=== PATIENT | female | born 1935 | race Caucasian/White ===

== ENCOUNTER 2021-07-15 19:29 | Inpatient (IN) ==
[2021-07-15] MEDS ORDERED: D5% in Water 1,000 ML IVC PRN (22:11)
[2021-07-15] MEDS ORDERED: *HR* Dextrose 50 % in Water (Syg) 50 ML SYRINGE IVP PRN (22:11)
[2021-07-15] MEDS ORDERED: Dextrose 4 GM Chewable Tablets PO PRN ×2 (22:11)
[2021-07-16] MEDS ORDERED: Insulin LISPRO 300 UNITS/3 ML VIAL SUBQ SCH ×2 (13:30→21:00)
[2021-07-16 13:31] LABS: Basophils # 0.1 K/mcL (0.0-0.2); Basophils % 0.6 %; Eosinophils # 0.2 K/mcL (0.0-0.6); Hematocrit 42.2 % (35.3-44.9); Hemoglobin 13.4 g/dL (11.5-15.4); Immature Granulocytes % 0.6 % (0-4); Lymphocytes # 1.5 K/mcL (0.6-4.6); Lymphocytes % 15.9 %; Mean Corpuscular HGB Conc 31.8 g/dL (31.6-35.5); Mean Corpuscular Volume 91.3 fL (83.0-100.0); Mean Platelet Volume 10.5 fL (9.4-12.4); Monocytes # 0.8 K/mcL (0.0-1.3); Monocytes % 8.3 %; Neutrophils # 6.9 K/mcL (1.6-8.9); Platelet Count 270 K/mcL (140-400); Red Blood Count 4.62 M/mcL (3.82-4.97); Red Cell Distribution Width 13.8 % (11.5-14.5); Segmented Neutrophils % 72.6 %; White Blood Count 9.4 K/mcL (4.3-11.1)
[2021-07-16 13:43] LABS: BUN/Creatinine Ratio 38 (6-26); Blood Urea Nitrogen 37 mg/dL (8-23); Calcium 9.9 mg/dL (8.6-10.3); Carbon Dioxide 24 mEq/L (23-29); Chloride 103 mEq/L (98-107); Glucose 137 mg/dL (70-105); Osmolality,Calculated 291 (280-300); Potassium 4.2 mEq/L (3.5-5.1); Sodium 135 mEq/L (136-145); eGFR For African Americans > 60 (> 60); eGFR For Non-African Americans 54 (> 60)
[2021-07-16] MEDS ORDERED: Cyanocobalamin (B-12) 1,000 MCG/ML VIAL IM ONE (15:20)
[2021-07-16] MEDS: Cyanocobalamin (B-12) 1,000 MCG/ML VIAL IM SCH (17:23)
[2021-07-17] MEDS: lisinopriL 20 MG TABLET PO SCH (08:06)
[2021-07-17] MEDS: Aspirin 81 MG TAB.CHEW PO SCH (08:06)
[2021-07-17] MEDS: Multivit/Ca/Min/Fe/FA 1 TAB TABLET PO SCH (08:06)
[2021-07-17] MEDS: amLODIPine 5 MG TABLET PO SCH (08:06)
[2021-07-17] MEDS ORDERED: *HR* Glimepiride 2 MG TABLET PO SCH (09:00)
[2021-07-18] MEDS: lisinopriL 20 MG TABLET PO SCH (09:18)
[2021-07-18] MEDS: Aspirin 81 MG TAB.CHEW PO SCH (09:18)
[2021-07-18] MEDS: amLODIPine 5 MG TABLET PO SCH (09:18)
[2021-07-18] MEDS: Multivit/Ca/Min/Fe/FA 1 TAB TABLET PO SCH (09:18)
[2021-07-19] MEDS: Multivit/Ca/Min/Fe/FA 1 TAB TABLET PO SCH (07:30)
[2021-07-19] MEDS: Aspirin 81 MG TAB.CHEW PO SCH (07:30)
[2021-07-19] MEDS: lisinopriL 20 MG TABLET PO SCH (07:31)
[2021-07-19] MEDS: amLODIPine 5 MG TABLET PO SCH (07:31)
[2021-07-20] MEDS: Multivit/Ca/Min/Fe/FA 1 TAB TABLET PO SCH (09:19)
[2021-07-20] MEDS: amLODIPine 5 MG TABLET PO SCH (09:20)
[2021-07-20] MEDS: lisinopriL 20 MG TABLET PO SCH (09:20)
[2021-07-20] MEDS: Aspirin 81 MG TAB.CHEW PO SCH (09:20)
[2021-07-20] MEDS ORDERED: E-Z-PAQUE (BARIUM SULF) SUSP 1 BOTTLE PO ONE (10:57)
[2021-07-20] MEDS ORDERED: E-Z-HD (BARIUM SULF) SUSPENSION PO ONE (10:57)
[2021-07-21] MEDS: lisinopriL 20 MG TABLET PO SCH (08:15)
[2021-07-21] MEDS: amLODIPine 5 MG TABLET PO SCH (08:15)
[2021-07-21] MEDS: Aspirin 81 MG TAB.CHEW PO SCH (08:15)
[2021-07-21] MEDS: Multivit/Ca/Min/Fe/FA 1 TAB TABLET PO SCH (08:15)
[2021-07-21] MEDS ORDERED: Sennosides 8.6 MG TABLET PO PRN (11:18)
[2021-07-21] MEDS: Docusate Oral Soln 100 MG/10 ML UDC PO SCH (12:12)
[2021-07-22 07:54] LABS: Hematocrit 40.2 % (35.3-44.9); Mean Corpuscular HGB Conc 32.3 g/dL (31.6-35.5); Mean Corpuscular Hemoglobin 29.3 pg (28.0-33.3); Mean Corpuscular Volume 90.7 fL (83.0-100.0); Mean Platelet Volume 10.8 fL (9.4-12.4); Platelet Count 283 K/mcL (140-400); Red Blood Count 4.43 M/mcL (3.82-4.97); Red Cell Distribution Width 13.2 % (11.5-14.5); White Blood Count 9.1 K/mcL (4.3-11.1)
[2021-07-22 08:30] LABS: BUN/Creatinine Ratio 49 (6-26); Blood Urea Nitrogen 45 mg/dL (8-23); Calcium 10.1 mg/dL (8.6-10.3); Carbon Dioxide 24 mEq/L (23-29); Chloride 105 mEq/L (98-107); Glucose 155 mg/dL (70-105); Magnesium 2.4 mg/dL (1.6-2.6); Osmolality,Calculated 299 (280-300); Potassium 4.8 mEq/L (3.5-5.1); Sodium 137 mEq/L (136-145); eGFR For African Americans > 60 (> 60); eGFR For Non-African Americans 58 (> 60)
[2021-07-22] MEDS: lisinopriL 20 MG TABLET PO SCH (09:28)
[2021-07-22] MEDS: Aspirin 81 MG TAB.CHEW PO SCH (09:28)
[2021-07-22] MEDS: Docusate Oral Soln 100 MG/10 ML UDC PO SCH (09:28)
[2021-07-22] MEDS: Multivit/Ca/Min/Fe/FA 1 TAB TABLET PO SCH (09:28)
[2021-07-22] MEDS: amLODIPine 5 MG TABLET PO SCH (09:29)
[2021-07-22] MEDS: Sennosides 8.6 MG TABLET PO SCH (11:58)
[2021-07-23] MEDS: lisinopriL 20 MG TABLET PO SCH (08:04)
[2021-07-23] MEDS: amLODIPine 5 MG TABLET PO SCH (08:04)
[2021-07-23] MEDS: Aspirin 81 MG TAB.CHEW PO SCH (08:04)
[2021-07-23] MEDS: Docusate Oral Soln 100 MG/10 ML UDC PO SCH (08:04)
[2021-07-23] MEDS: Multivit/Ca/Min/Fe/FA 1 TAB TABLET PO SCH (08:04)
[2021-07-23] MEDS: Sennosides 8.6 MG TABLET PO SCH (08:04)
[2021-07-23] MEDS: Cyanocobalamin (B-12) 1,000 MCG/ML VIAL IM SCH (09:25)
[2021-07-23] MEDS: Sennosides/Docusate Sodium TABLET PO SCH (20:21)
[2021-07-24] MEDS: Sennosides/Docusate Sodium TABLET PO SCH ×2 (07:49→20:20)
[2021-07-24] MEDS: amLODIPine 5 MG TABLET PO SCH (07:49)
[2021-07-24] MEDS: lisinopriL 20 MG TABLET PO SCH (07:49)
[2021-07-24] MEDS: Multivit/Ca/Min/Fe/FA 1 TAB TABLET PO SCH (07:49)
[2021-07-24] MEDS: Aspirin 81 MG TAB.CHEW PO SCH (07:49)
[2021-07-25] MEDS: lisinopriL 20 MG TABLET PO SCH (09:04)
[2021-07-25] MEDS: Sennosides/Docusate Sodium TABLET PO SCH ×2 (09:04→19:36)
[2021-07-25] MEDS: Multivit/Ca/Min/Fe/FA 1 TAB TABLET PO SCH (09:04)
[2021-07-25] MEDS: Aspirin 81 MG TAB.CHEW PO SCH (09:05)
[2021-07-25] MEDS: amLODIPine 5 MG TABLET PO SCH (09:05)
[2021-07-26] MEDS: lisinopriL 20 MG TABLET PO SCH (08:40)
[2021-07-26] MEDS: Aspirin 81 MG TAB.CHEW PO SCH (08:40)
[2021-07-26] MEDS: Sennosides/Docusate Sodium TABLET PO SCH ×2 (08:40→19:42)
[2021-07-26] MEDS: amLODIPine 5 MG TABLET PO SCH (08:40)
[2021-07-26] MEDS: Multivit/Ca/Min/Fe/FA 1 TAB TABLET PO SCH (08:40)
[2021-07-26] MEDS: Insulin LISPRO 300 UNITS/3 ML VIAL SUBQ SCH (19:34)
[2021-07-27] MEDS: Insulin LISPRO 300 UNITS/3 ML VIAL SUBQ SCH ×4 (07:21→20:24)
[2021-07-27] MEDS: Aspirin 81 MG TAB.CHEW PO SCH (08:16)
[2021-07-27] MEDS: amLODIPine 5 MG TABLET PO SCH (08:16)
[2021-07-27] MEDS: Sennosides/Docusate Sodium TABLET PO SCH ×2 (08:16→19:38)
[2021-07-27] MEDS: Multivit/Ca/Min/Fe/FA 1 TAB TABLET PO SCH (08:16)
[2021-07-27] MEDS: lisinopriL 20 MG TABLET PO SCH (08:17)
[2021-07-28] MEDS: Insulin LISPRO 300 UNITS/3 ML VIAL SUBQ SCH ×4 (08:23→20:00)
[2021-07-28] MEDS: Sennosides/Docusate Sodium TABLET PO SCH ×2 (09:05→20:00)
[2021-07-28] MEDS: Aspirin 81 MG TAB.CHEW PO SCH (09:05)
[2021-07-28] MEDS: amLODIPine 5 MG TABLET PO SCH (09:06)
[2021-07-28] MEDS: Multivit/Ca/Min/Fe/FA 1 TAB TABLET PO SCH (09:06)
[2021-07-28] MEDS: modafiniL 100 MG TABLET PO SCH (09:06)
[2021-07-28] MEDS: lisinopriL 20 MG TABLET PO SCH (09:06)
[2021-07-29] MEDS: Insulin LISPRO 300 UNITS/3 ML VIAL SUBQ SCH ×4 (07:39→21:37)
[2021-07-29] MEDS: Aspirin 81 MG TAB.CHEW PO SCH (08:16)
[2021-07-29] MEDS: modafiniL 100 MG TABLET PO SCH (08:16)
[2021-07-29] MEDS: lisinopriL 20 MG TABLET PO SCH (08:17)
[2021-07-29] MEDS: Sennosides/Docusate Sodium TABLET PO SCH ×2 (08:17→21:37)
[2021-07-29] MEDS: Multivit/Ca/Min/Fe/FA 1 TAB TABLET PO SCH (08:17)
[2021-07-29] MEDS: amLODIPine 5 MG TABLET PO SCH (08:17)
[2021-07-30] MEDS: Insulin LISPRO 300 UNITS/3 ML VIAL SUBQ SCH ×4 (07:39→20:38)
[2021-07-30] MEDS: Multivit/Ca/Min/Fe/FA 1 TAB TABLET PO SCH (07:45)
[2021-07-30] MEDS: modafiniL 100 MG TABLET PO SCH (07:45)
[2021-07-30] MEDS: Aspirin 81 MG TAB.CHEW PO SCH (07:45)
[2021-07-30] MEDS: Sennosides/Docusate Sodium TABLET PO SCH ×2 (07:45→20:36)
[2021-07-30] MEDS: amLODIPine 5 MG TABLET PO SCH (07:45)
[2021-07-30] MEDS: lisinopriL 20 MG TABLET PO SCH (07:45)
[2021-07-30] MEDS: Cyanocobalamin (B-12) 1,000 MCG/ML VIAL IM SCH (07:47)
[2021-07-31] MEDS: Insulin LISPRO 300 UNITS/3 ML VIAL SUBQ SCH ×4 (07:46→20:24)
[2021-07-31] MEDS: Sennosides/Docusate Sodium TABLET PO SCH ×2 (10:04→21:21)
[2021-07-31] MEDS: lisinopriL 20 MG TABLET PO SCH (10:05)
[2021-07-31] MEDS: amLODIPine 5 MG TABLET PO SCH (10:05)
[2021-07-31] MEDS: Multivit/Ca/Min/Fe/FA 1 TAB TABLET PO SCH (10:05)
[2021-07-31] MEDS: modafiniL 100 MG TABLET PO SCH (10:05)
[2021-07-31] MEDS: Aspirin 81 MG TAB.CHEW PO SCH (10:05)
[2021-08-01] MEDS: Insulin LISPRO 300 UNITS/3 ML VIAL SUBQ SCH ×4 (07:44→22:12)
[2021-08-01] MEDS: Sennosides/Docusate Sodium TABLET PO SCH ×2 (08:37→22:56)
[2021-08-01] MEDS: Aspirin 81 MG TAB.CHEW PO SCH (08:37)
[2021-08-01] MEDS: amLODIPine 5 MG TABLET PO SCH (08:37)
[2021-08-01] MEDS: Multivit/Ca/Min/Fe/FA 1 TAB TABLET PO SCH (08:37)
[2021-08-01] MEDS: lisinopriL 20 MG TABLET PO SCH (08:37)
[2021-08-01] MEDS: modafiniL 100 MG TABLET PO SCH (08:37)
[2021-08-02] MEDS: Insulin LISPRO 300 UNITS/3 ML VIAL SUBQ SCH ×4 (07:25→21:01)
[2021-08-02] MEDS: modafiniL 100 MG TABLET PO SCH (09:18)
[2021-08-02] MEDS: Sennosides/Docusate Sodium TABLET PO SCH ×2 (09:18→21:00)
[2021-08-02] MEDS: lisinopriL 20 MG TABLET PO SCH (09:18)
[2021-08-02] MEDS: amLODIPine 5 MG TABLET PO SCH (09:18)
[2021-08-02] MEDS: Multivit/Ca/Min/Fe/FA 1 TAB TABLET PO SCH (09:18)
[2021-08-02] MEDS: Aspirin 81 MG TAB.CHEW PO SCH (09:18)
[2021-08-03] MEDS: Insulin LISPRO 300 UNITS/3 ML VIAL SUBQ SCH ×4 (07:16→20:49)
[2021-08-03] MEDS: lisinopriL 20 MG TABLET PO SCH (08:49)
[2021-08-03] MEDS: modafiniL 100 MG TABLET PO SCH (08:50)
[2021-08-03] MEDS: Sennosides/Docusate Sodium TABLET PO SCH ×2 (08:50→21:26)
[2021-08-03] MEDS: Multivit/Ca/Min/Fe/FA 1 TAB TABLET PO SCH (08:50)
[2021-08-03] MEDS: Aspirin 81 MG TAB.CHEW PO SCH (08:50)
[2021-08-03] MEDS: amLODIPine 5 MG TABLET PO SCH (08:50)
[2021-08-04 06:39] LABS: Hematocrit 36.9 % (35.3-44.9); Mean Corpuscular HGB Conc 32.5 g/dL (31.6-35.5); Mean Corpuscular Hemoglobin 28.8 pg (28.0-33.3); Mean Corpuscular Volume 88.7 fL (83.0-100.0); Mean Platelet Volume 11.3 fL (9.4-12.4); Platelet Count 296 K/mcL (140-400); Red Blood Count 4.16 M/mcL (3.82-4.97); Red Cell Distribution Width 13.9 % (11.5-14.5); White Blood Count 11.2 K/mcL (4.3-11.1)
[2021-08-04 07:04] LABS: BUN/Creatinine Ratio 41 (6-26); Blood Urea Nitrogen 34 mg/dL (8-23); Calcium 9.6 mg/dL (8.6-10.3); Carbon Dioxide 22 mEq/L (23-29); Chloride 106 mEq/L (98-107); Glucose 137 mg/dL (70-105); Osmolality,Calculated 294 (280-300); Potassium 4.1 mEq/L (3.5-5.1); Sodium 137 mEq/L (136-145); eGFR For African Americans > 60 (> 60); eGFR For Non-African Americans > 60 (> 60)
[2021-08-04] MEDS: Insulin LISPRO 300 UNITS/3 ML VIAL SUBQ SCH ×4 (07:26→20:24)
[2021-08-04] MEDS: Aspirin 81 MG TAB.CHEW PO SCH (08:13)
[2021-08-04] MEDS: Multivit/Ca/Min/Fe/FA 1 TAB TABLET PO SCH (08:13)
[2021-08-04] MEDS: lisinopriL 20 MG TABLET PO SCH (08:13)
[2021-08-04] MEDS: modafiniL 100 MG TABLET PO SCH (08:14)
[2021-08-04] MEDS: amLODIPine 5 MG TABLET PO SCH (08:14)
[2021-08-04] MEDS: Sennosides/Docusate Sodium TABLET PO SCH ×2 (08:14→20:47)
[2021-08-05] MEDS: Insulin LISPRO 300 UNITS/3 ML VIAL SUBQ SCH ×4 (07:50→21:02)
[2021-08-05] MEDS: modafiniL 100 MG TABLET PO SCH (09:48)
[2021-08-05] MEDS: amLODIPine 5 MG TABLET PO SCH (09:48)
[2021-08-05] MEDS: Multivit/Ca/Min/Fe/FA 1 TAB TABLET PO SCH (09:48)
[2021-08-05] MEDS: Aspirin 81 MG TAB.CHEW PO SCH (09:49)
[2021-08-05] MEDS: Sennosides/Docusate Sodium TABLET PO SCH ×2 (09:49→21:03)
[2021-08-05] MEDS: lisinopriL 20 MG TABLET PO SCH (09:49)
[2021-08-06] MEDS: Insulin LISPRO 300 UNITS/3 ML VIAL SUBQ SCH ×4 (07:33→20:15)
[2021-08-06] MEDS: Sennosides/Docusate Sodium TABLET PO SCH ×2 (09:23→20:17)
[2021-08-06] MEDS: Aspirin 81 MG TAB.CHEW PO SCH (09:23)
[2021-08-06] MEDS: amLODIPine 5 MG TABLET PO SCH (09:24)
[2021-08-06] MEDS: Multivit/Ca/Min/Fe/FA 1 TAB TABLET PO SCH (09:24)
[2021-08-06] MEDS: lisinopriL 20 MG TABLET PO SCH (09:24)
[2021-08-06] MEDS: modafiniL 100 MG TABLET PO SCH (09:24)
[2021-08-06] MEDS ORDERED: Cyanocobalamin (B-12) 1,000 MCG/ML VIAL IM ONE (11:53)
[2021-08-07] MEDS: Cyanocobalamin (B-12) 1,000 MCG/ML VIAL IM SCH (06:40)
[2021-08-07] MEDS: modafiniL 100 MG TABLET PO SCH (09:00)
[2021-08-07] MEDS: Aspirin 81 MG TAB.CHEW PO SCH (09:01)
[2021-08-07] MEDS: Sennosides/Docusate Sodium TABLET PO SCH ×2 (09:01→21:43)
[2021-08-07] MEDS: Multivit/Ca/Min/Fe/FA 1 TAB TABLET PO SCH (09:02)
[2021-08-07] MEDS: lisinopriL 20 MG TABLET PO SCH (09:02)
[2021-08-07] MEDS: amLODIPine 5 MG TABLET PO SCH (09:02)
[2021-08-07] MEDS: Insulin LISPRO 300 UNITS/3 ML VIAL SUBQ SCH ×3 (09:04→17:44)
[2021-08-07 16:37] LABS: Bilirubin,Urine Negative (Negative); Blood,Urine Large (Negative); Clarity,Urine Clear (Clear); Color,Urine Yellow (Yellow); Glucose,Urine (UA) Normal (Normal); Ketones,Urine Negative (Negative); Leukocyte Esterase,Urine Small (Negative); Nitrite,Urine Negative (Negative); Protein,Urine 30 mg/dL (Neg-Trace); Specific Gravity,Urine 1.025 (1.010-1.025); Urobilinogen,Urine Normal (Normal)
[2021-08-07 16:44] LABS: Bacteria,Urine Many per hpf (None-Few); Squamous Epithelial Cell,Urine Few per hpf (None-Few); WBC,Urine 15-30 per hpf (0-3)
[2021-08-07] MEDS: cefTRIAXone 1,000 MG in 0.9 % Sodium Chloride Mini Bag 100 ML IVPB SCH (19:46)
[2021-08-08] MEDS: Insulin LISPRO 300 UNITS/3 ML VIAL SUBQ SCH ×5 (00:42→22:12)
[2021-08-08] MEDS: modafiniL 100 MG TABLET PO SCH (08:32)
[2021-08-08] MEDS: amLODIPine 5 MG TABLET PO SCH (08:32)
[2021-08-08] MEDS: Sennosides/Docusate Sodium TABLET PO SCH ×2 (08:33→22:13)
[2021-08-08] MEDS: Multivit/Ca/Min/Fe/FA 1 TAB TABLET PO SCH (08:33)
[2021-08-08] MEDS: Aspirin 81 MG TAB.CHEW PO SCH (08:33)
[2021-08-08] MEDS: lisinopriL 20 MG TABLET PO SCH (08:33)
[2021-08-08] MEDS: cefTRIAXone 1,000 MG in 0.9 % Sodium Chloride Mini Bag 100 ML IVPB SCH (08:35)
[2021-08-09] MEDS: cefTRIAXone 1,000 MG in 0.9 % Sodium Chloride Mini Bag 100 ML IVPB SCH (09:50)
[2021-08-09] MEDS: amLODIPine 5 MG TABLET PO SCH (09:51)
[2021-08-09] MEDS: Aspirin 81 MG TAB.CHEW PO SCH (09:51)
[2021-08-09] MEDS: lisinopriL 20 MG TABLET PO SCH (09:51)
[2021-08-09] MEDS: Sennosides/Docusate Sodium TABLET PO SCH ×2 (09:51→21:24)
[2021-08-09] MEDS: Multivit/Ca/Min/Fe/FA 1 TAB TABLET PO SCH (09:51)
[2021-08-09] MEDS: Insulin LISPRO 300 UNITS/3 ML VIAL SUBQ SCH ×4 (09:51→21:24)
[2021-08-09] MEDS: modafiniL 100 MG TABLET PO SCH (10:03)
[2021-08-10] MEDS: Insulin LISPRO 300 UNITS/3 ML VIAL SUBQ SCH ×4 (08:30→20:01)
[2021-08-10] MEDS: Aspirin 81 MG TAB.CHEW PO SCH (08:31)
[2021-08-10] MEDS: Sennosides/Docusate Sodium TABLET PO SCH ×2 (08:31→20:00)
[2021-08-10] MEDS: cefTRIAXone 1,000 MG in 0.9 % Sodium Chloride Mini Bag 100 ML IVPB SCH (08:31)
[2021-08-10] MEDS: amLODIPine 5 MG TABLET PO SCH (08:31)
[2021-08-10] MEDS: modafiniL 100 MG TABLET PO SCH (08:32)
[2021-08-10] MEDS: Multivit/Ca/Min/Fe/FA 1 TAB TABLET PO SCH (08:32)
[2021-08-10] MEDS: lisinopriL 20 MG TABLET PO SCH (08:32)
[2021-08-10 19:40] VITALS: RESP 16; O2SAT 95
[2021-08-10 21:32] LABS: Influenza A PCR Negative (Negative); Influenza B PCR Negative (Negative); Resp. Syncytial Virus PCR Negative (Negative)
[2021-08-10 21:33] LABS: SARS-CoV-2 by PCR (In House) Negative (Negative)
[2021-08-11 06:15] VITALS: BP 122/72; PULSE 95; TEMP 97.9
== END 2021-08-11 08:28 | DRG 65 ==
LOC: INPPIK 07-16 12:58
PROVIDERS: ADMIT Internal Medicine; ATTEND Internal Medicine